=== PATIENT | female | born 1970 | race Caucasian/White ===

== ENCOUNTER → 2023-09-18 | Outpatient (REF) | LOC: M LAB 15:31 | PROVIDERS: ATTEND Family Medicine | DX: Z00.00 Encounter for general adult medical examination without abnormal findings (principal) ==

== ENCOUNTER → 2025-02-08 | Outpatient (REF) | payer MEDICAID, OTHER | LOC: M LAB REF 18:38 | PROVIDERS: ATTEND Physician Assistant | DX: B34.9 Viral infection, unspecified (principal) ==